=== PATIENT | female | born 1980 | race Caucasian/White ===

== ENCOUNTER 2023-12-26 10:18 | Day surgery (SDC) | payer OTHER ==
[~2023-12-26 10:18] MED LIST: HYDRODIURIL12.5 MG PO; LOSARTAN POTASS50 MG PO; METFORMIN HCL1000 M2 PO
[2023-12-26] MEDS ORDERED: CEFAZOLIN SODIUM 1,000 MG VIAL ONE (11:20)
[2023-12-26] MEDS ORDERED: POVIDONE-IODINE 118 ML BOTT TOP ONE ×2 (12:29→13:45)
[2023-12-26] MEDS ORDERED: EPINEPHRINE HCL/PF 1 MG/ML AMPUL ONE (13:27)
[2023-12-26] MEDS ORDERED: CEFAZOLIN SODIUM 2,000 MG in 0.9 % SODIUM CHLORIDE 100 ML IV ONE (13:45)
[2023-12-26] MEDS ORDERED: EPINEPHRINE HCL/PF 1 MG/ML AMPUL IJ ONE (13:45)
== END 2023-12-26 19:05 | disposition home or self-care (01) ==
LOC: CIR.AMB 10:18
PROVIDERS: ATTEND Obstetrics & Gynecology
DX: D06.0 Carcinoma in situ of endocervix (principal); D06.9 Carcinoma in situ of cervix, unspecified

== ENCOUNTER 2024-01-02 13:47 | Outpatient (CLI) | payer OTHER | END 2024-01-02 13:50 | disposition home or self-care (01) | LOC: SONOGRAMA 13:47 | PROVIDERS: ATTEND Pathology Anatomic Pathology & Clinical Pathology | DX: D34 Benign neoplasm of thyroid gland (principal); E07.89 Other specified disorders of thyroid; E03.8 Other specified hypothyroidism ==